=== PATIENT | female | born 1985 | race African-American/Black ===

== ENCOUNTER 2017-10-23 22:23 | Emergency (ER) | payer SELFPAY ==
[2017-10-23] MEDS ORDERED: TYLENOL ONE (23:39)
[2017-10-23 23:40] VITALS: BP 117/64
[2017-10-23] MEDS ORDERED: TYLENOL PO ONE (23:40)
[2017-10-24 00:27] LABS: Bacteria,Urine 1+ /HPF (Negative); Bilirubin,Urine NEG (Negative); Blood,Urine SM (Negative); Color,Urine Yellow (Yellow); Mucus,Urine FEW /HPF; Urobilinogen,Urine < 2.0 mg/dL (<2.0)
[2017-10-24 00:33] LABS: HCG Qualitative,Urine Negative (Negative); WBC,Urine > 182.0 /HPF (0.0-6.0)
== END 2017-10-24 08:30 | disposition left against medical advice (07) ==
LOC: ED 22:23
DX: R10.9 Unspecified abdominal pain (principal); Z53.21 Procedure and treatment not carried out due to patient leaving prior to being seen by health care provider
CPT/HCPCS: 81001; 81025